=== PATIENT | female | born 1980 | race Hispanic/Latino ===

== ENCOUNTER 2017-09-03 13:07 | Inpatient (IN) | payer OTHER ==
[~2017-09-03] VITALS: Ht 154.9 cm; Wt 80.0 kg
[~2017-09-03 13:07] MED LIST: FLUOXETINE HCL20 MG PO
--- NOTE | 2017-09-05 12:27 | PR ---
[facility] [address], [place] [address] Signed PP Progress Notes Datetime Report Generated by CPN: 09/05/2017 12:27 SUBJECTIVE: [id number] Pain: Within normal limits Nausea/Vomiting: Denies Flatus: Yes Bowel Movement: No Vital Signs: [id number] Vital Signs: Reviewed; Within Normal Limits EXAM: [id number] Cardiovascular: Normal Respiratory: Normal Abdomen/Uterus: Normal Lochia: Normal Vulva/Perineum: Normal Breasts: Normal CVA Tenderness: Normal Extremities: Normal Incision: Not Applicable Progress: Normal IMPRESSION/PLAN/PROCEDURES: [id number] Impression: Normal progression Plan: Discharge Procedures: [place] Progress Notes: patient doing well wanting to go home today Signing Physician: Melissa Marie MD CC: *Electronically Signed* 09/05/17 1227 MELISSA MARIE MD PATIENT NAME: SUNI ESPINOZA PROGRESS NOTE DATE OF : 80 PHYSICIAN: MELISSA MARIE MD RPT #: [id number] REPORT IS CONFIDENTIAL AND NOT TO BE RELEASED WITHOUT AUTHORIZATION
== END 2017-09-05 16:30 | disposition home or self-care (01) | DRG 775 ==
LOC: FBC 09-04 00:08
PROVIDERS: ADMIT Obstetrics & Gynecology
PROC: 10E0XZZ Delivery of Products of Conception, External Approach (ICD-10-PCS; principal; 2017-09-04)
PROC: 0KQM0ZZ Repair Perineum Muscle, Open Approach (ICD-10-PCS; 2017-09-04)
PROC: 3E0234Z Introduction of Serum, Toxoid and Vaccine into Muscle, Percutaneous Approach (ICD-10-PCS; 2017-09-04)
DX: O66.0 Obstructed labor due to shoulder dystocia (principal); Z3A.39 39 weeks gestation of pregnancy; Z37.0 Single live birth; O69.3XX0 Labor and delivery complicated by short cord, not applicable or unspecified; O70.1 Second degree perineal laceration during delivery; Z23 Encounter for immunization
CPT/HCPCS: 36415; 85027; 90707; J2590; J7120

== ENCOUNTER 2023-09-26 19:21 | Emergency (ER) | payer OTHER ==
[~2023-09-26] VITALS: Ht 154.9 cm; Wt 77.5 kg
[~2023-09-26 19:21] MED LIST changes: +FAMCICLOVIR500 MG PO; +PREDNISONE20 MG PO
[2023-09-26] MEDS ORDERED: DOXYCYCLINE HY100 MG PO (19:32)
[2023-09-26 19:44] LABS: BASOPHILS 0.3 % (0-2); EOSINOPHILS 2.3 % (0-6); HEMATOCRIT 38.7 % (35.0-50.0); LYMPHOCYTES 22.6 % (24-44); MCH 28.6 (27-36); MCHC 33.7 g/dl (30-36); MCV 85.1 fl (81-99); MONOCYTES 9.8 % (0-12); PLATELET COUNT 376 K/uL (140-440); RBC 4.55 M/ul (4.3-5.7); RDW 12.7 (10.5-15.0)
[2023-09-26 20:18] LABS: ALBUMIN 3.7 g/dL (3.4-5.0); ALKALINE PHOSPHATASE 103 U/L (46-116); ALT (SGPT) 72 U/L (14-59); ANION GAP 11.9 (7-21); AST (SGOT) 44 U/L (15-37); BILIRUBIN, TOTAL 0.3 ng/dL (0.2-1.0); CALCIUM 9.2 mg/dL (8.5-10.1); CARBON DIOXIDE 27 mmol/L (21-32); CHLORIDE 104 mmol/L (98-107); CREATININE, SERUM 0.92 mg/dL (0.55-1.02); GLOMERULAR FILTRATION RATE,EST 80 mL/min (>60); POTASSIUM 3.9 mmol/L (3.5-5.1); PROTEIN, TOTAL 7.8 g/dL (6.4-8.2); UREA NITROGEN 15 mg/dL (7-18)
[2023-09-26] MEDS ORDERED: OMEPRAZOLE20 MG PO (20:46)
[2023-09-26 21:03] VITALS: BP 143/91
--- NOTE | 2023-09-27 10:35 | EKG ---
[facility] [address] [facility] [place] [address] Signed Poor data quality, interpretation may be adversely affected Normal sinus rhythm Normal ECG Confirmed by FILEMON DUNLAP MD ([id number]) on 09/27/2023 10:35:36 AM Electronically Signed By: FILEMON DUNLAP 09/27/23 1035 PATIENT NAME: SUNI TORRE Electrocardiogram DATE OF : 80 PHYSICIAN: FILEMON DUNLAP REPORT #: [id number] REPORT IS CONFIDENTIAL AND NOT TO BE RELEASED WITHOUT AUTHORIZATION
== END 2023-09-26 21:00 | disposition home or self-care (01) ==
LOC: ED 19:21
PROVIDERS: Internal Medicine
DX: R07.89 Other chest pain (principal); K21.9 Gastro-esophageal reflux disease without esophagitis
CPT/HCPCS: 36415; 71045; 80053; 83735; 84484; 84703; 85025; 85379; 93005; 93010; 96374; 99285-25; A9270

== ENCOUNTER 2025-08-11 14:32 | Emergency (ER) | payer OTHER ==
[~2025-08-11] VITALS: Ht 154.9 cm; Wt 71.5 kg
[~2025-08-11 14:32] MED LIST changes: +DOXYCYCLINE HY100 MG PO; +OMEPRAZOLE20 MG PO
[2025-08-11] MEDS ORDERED: BUPROPION XL150 MG PO (14:52)
[2025-08-11] MEDS ORDERED: IBUPROFEN 600 MG TAB PO ONE (15:00)
[2025-08-11] MEDS ORDERED: LIDOCAINE HCL 4% 1 EACH PATCH TD ONE (15:00)
[2025-08-11] MEDS ORDERED: ACETAMINOPHEN 500 MG TAB PO ONE (15:00)
[2025-08-11 15:01] LABS: BLOOD/HGB, URINE LARGE (Negative); KETONE, URINE NEGATIVE (Negative); LEUK ESTERASE, URINE TRACE (negative); NITRITE, URINE NEGATIVE (negative)
[2025-08-11 15:08] LABS: BACTERIA, URINE NONE SEEN /hpf (negative); CASTS, URINE NONE SEEN \\lpf; CRYSTALS, URINE NONE SEEN (0-1+); EPITHELIAL CELLS, URINE SQUAMOUS 2+ /lpf (0-1+); REFLEX CULTURE, URINE No (No)
[2025-08-11] MEDS ORDERED: FLOMAX0.4 MG PO (15:58)
[2025-08-11] MEDS ORDERED: ONDANSETRON ODT4 MG PO (15:58)
[2025-08-11] MEDS ORDERED: PERCOCET 5-3251 EACH PO (15:58)
[2025-08-11] MEDS ORDERED: TAMSULOSIN HCL 0.4 MG CAP PO ONE (16:15)
[2025-08-11 16:17] VITALS: BP 122/76
[2025-08-11] MEDS ORDERED: LIDOCAINE PATCH REMOVAL 1 EA TD SCH (21:00)
== END 2025-08-11 16:21 | disposition home or self-care (01) ==
LOC: ED 14:32
PROVIDERS: Emergency Medicine
DX: N20.1 Calculus of ureter (principal); Z79.899 Other long term (current) drug therapy
CPT/HCPCS: 74176; 81001; 84703; 99284-25; A9270